=== PATIENT | female | born 1980 | race Caucasian/White ===

== ENCOUNTER 2023-04-30 17:25 | Emergency (ER) | payer OTHER ==
--- NOTE | 2023-04-30 17:41 | ED Physician Documentation ---
History of Present Illness - Stated complaint Stated Complaint: L EAR PX - Chief complaint Chief Complaint: Heent - History obtained from History obtained from: Patient - History of Present Illness Pain level max: 4 Pain level now: 4 - Additonal information Additional information: 42-year-old female presents to the emergency department with left ear pain. She is visiting from [place]. She has had rhinorrhea, cough and congestion for the past several days, developed left ear pain today. No drainage. No fevers. No chills. Denies any possibility of . Review of Systems Constitutional: denies: Fever, Chills GI: denies: Vomiting : denies: Now EGA Skin: denies: Rash Musculoskeletal: denies: Neck pain, Back pain Neurologic: denies: Headache PD PAST MEDICAL HISTORY - Past Medical History Past Medical History: No - Past Surgical History Past Surgical History: No - Present Medications Home Medications: Ambulatory Orders Medication Instructions Recorded Confirmed Amox/Clav 875/125 [Augmentin] 1 tab PO Q12H #20 tablet 04/30/23 - Allergies Allergies/Adverse Reactions: Allergies Allergy/AdvReac Type Severity Reaction Status Date / Time No Known Drug Allergies Allergy Verified 04/30/23 17:38 - Social History Does the pt smoke?: No Smoking Status: Never smoker PD ED PE NORMAL - Vitals Vital signs reviewed: Yes - General General: Alert and oriented X 3, No acute distress - HEENT HEENT: PERRL, Moist mucous membranes, Pharynx benign, Other (Right TM is normal. Left TM is erythematous, dull, bulging with loss of landmarks. Purulent fluid present.) - Neck Neck: Supple, no meningeal sign, No adenopathy - Cardiac Cardiac: RRR, Strong equal pulses - Respiratory Respiratory: No respiratory distress, Clear bilaterally - Derm Derm: Warm and dry - Neuro Neuro: Alert and oriented X 3 - Psych Psych: Normal mood, Normal affect Results - Vitals Vitals: Vital Signs - 24 hr 04/30/23 04/30/23 17:36 18:11 Temperature 36.1 C L Heart Rate 75 70 Respiratory 18 16 Rate Blood Pressure 144/83 H 136/70 H O2 Saturation 100 99 - EKG (time done) 1730 EKG releavant findings:: EKG personally interpreted by author of this note. Relevant findings are: Rate: Rate (enter#) (84) Rhythm: NSR [place]: Normal Intervals: Normal [place] QRS: Normal Ischemia: Normal ST segments PD Medical Decision Making - ED course Complexity details: considered differential, d/w patient ED course: Patient with a left acute otitis media. Will place on oral antibiotics. Patient is well-appearing, nontoxic. Afebrile. No hypoxia. No respiratory distress. No evidence of perforation. Patient declines any pain medication for here or for home. Patient counseled regarding signs and symptoms for which I believe and urgent re-evaluation would be necessary. Patient with good understanding of and agreement to plan and is comfortable going home at this time This document was made in part using voice recognition software. While efforts are made to proofread this document, sound alike and grammatical errors may occur. Departure - Departure Disposition: Home, Self Care Clinical Impression: Otitis media Qualifiers: Otitis media type: suppurative Chronicity: acute Laterality: left Recurrence: non-recurrent Spontaneous tympanic membrane rupture: without spontaneous rupture Qualified Code(s): H66.002 - Acute suppurative otitis media without spontaneous rupture of ear drum, left ear Condition: Good Instructions: ED Otitis Media Acute Adult Follow-Up: your,doctor as needed [Other] - Within 1 week Prescriptions: Amox/Clav 875/125 [Augmentin] 1 tab PO Q12H #20 tablet Comments: Your prescription was sent to [facility] in [place]. You were given the first dose of tonight. Please take all antibiotics until gone. Please return if you worsen. You can also use Zyrtec-D or Claritin-D as these may help your ears to drain faster before your flight on Monday. Forms: PCP List Discharge Date/Time: 04/30/23 18:12
[2023-04-30] MEDS ORDERED: AMOX/CLAV 875 MG/125 MG TABLET PO STA (17:49)
[2023-04-30 18:17] VITALS: BP 136/70; O2SAT 99
== END 2023-04-30 18:12 | disposition home or self-care (01) ==
LOC: EDSEX → ED 17:25
DX: H66.002 Acute suppurative otitis media without spontaneous rupture of ear drum, left ear (principal)
CPT/HCPCS: 99282; 99283